=== PATIENT | female | born 1945 | race Two or more races ===

== ENCOUNTER 2023-06-12 18:15 | Emergency (ER) | payer OTHER ==
[~2023-06-12] VITALS: Ht 167.6 cm; Wt 70.0 kg
[2023-06-12 18:20] VITALS: TEMP 98.4; O2SAT 98
[2023-06-12 20:40] VITALS: BP 156/75; PULSE 69; RESP 20
== END 2023-06-12 20:46 | disposition home or self-care (01) ==
LOC: ER 18:15
DX: D57.00 Hb-SS disease with crisis, unspecified (principal); R07.89 Other chest pain; I10 Essential (primary) hypertension
CPT/HCPCS: 93005; 99283